=== PATIENT | female | born 1950 | race Caucasian/White ===

== ENCOUNTER 2021-06-20 09:47 | Emergency (ER) | payer OTHER ==
[~2021-06-20] VITALS: Ht 142.2 cm; Wt 54.4 kg
[~2021-06-20 09:47] MED LIST: ADULT LOW DOSE81 MG PO; AMARYL4 MG PO; BLACK COHOSH40 MG PO; EVENING PRIMR1000 MG PO; FISH OIL 1,0001 EAC5 PO; GLUCOPHAGE500 MG PO; JANUVIA100 MG PO; LEVEMIR FL100 UNIT/2 SUBQ; METFORMIN 500500 MG PO; METFORMIN HCL1000 M1 PO; MULTIVITAMINS1 EAC7 PO; PRAVACHOL40 MG PO; PRILOSEC 20 MG20 MG PO; VICTOZA0.6 MG/0.1 SQ; VITAMINC500 PO; ZESTRIL2.5 MG PO; ZYRTEC10 M2 PO
[2021-06-20 11:16] LABS: ABSOLUTE NEUTROPHILS 3.9 thou/uL (1.4-8.2); BASOPHILS 0.6 % (0.0-2.0); EOSINOPHILS 0.5 % (0.0-3.0); HEMATOCRIT 41.4 % (37.0-47.0); HEMOGLOBIN 14.2 gm/dL (12.0-15.0); LYMPHOCYTES 16.8 % (24.0-44.0); MCH 33.3 pg (26.0-34.0); MCHC 34.3 g/dL (28.0-37.0); MCV 97.2 fL (80.0-100.0); MONOCYTES 5.2 % (1.0-8.0); PLATELET COUNT 144 thou/uL (150-400); POLYS 76.9 % (36.0-66.0); RBC 4.27 mil/uL (4.20-5.00); RDW 12.5 % (10.5-14.5); WBC 5.1 thou/uL (4.0-11.0)
[2021-06-20 11:30] LABS: CALCIUM 9.4 mg/dL (8.5-10.1); CREATININE 0.7 mg/dL (0.6-1.0); POTASSIUM 4.2 mmol/L (3.5-5.1)
[2021-06-20 11:41] LABS: ALBUMIN 3.8 g/dL (3.4-5.0); TOTAL BILIRUBIN 0.4 mg/dL (0.2-1.0); TOTAL PROTEIN 7.2 g/dL (6.4-8.2)
[2021-06-20] MEDS ORDERED: CITRACAL + D31 EACH PO (11:42)
[2021-06-20] MEDS ORDERED: CYCLOSPORINE25 MG PO (11:43)
[2021-06-20] MEDS ORDERED: BIOTIN5 M1 PO (11:43)
[2021-06-20] MEDS ORDERED: REFRESH CLASSI1 EACH (11:44)
[2021-06-20] MEDS ORDERED: ZADITOR5 M1 (11:45)
[2021-06-20] MEDS ORDERED: POLYMYXIN B/TMP10 ML (11:46)
[2021-06-20] MEDS ORDERED: MECLIZINE HCL25 MG PO (12:17)
[2021-06-20 12:33] VITALS: BP 149/66
--- NOTE | 2021-06-20 15:44 | EKG ---
[place] [address] [employer] [facility] [address] [place] [address] ELECTROCARDIOGRAM REPORT Name: DIOGO MAYS Wesley Room #: [facility]ann#: [id number] Admission: 06/20/21 Attend Phys: Discharge: 06/20/21 Date of : 52 Report #: [id number] [facility] ED Test Date: 2021-06-20 Test Time: 10:36:43 Pat Name: DIOGO MAYS Department: Room: Gender: F Claims Vice President: : 1950 Requested By: Carlos Rosario Order Number: [id number] MD: Mike Delacruz Measurements Intervals [place] Rate: 83 P: 29 AL: 161 QRS: 5 QRSD: 106 T: 4 QT: 378 QTc: 445 Interpretive Statements Sinus rhythm Low voltage, precordial leads Compared to ECG 10/22/2012 09:29:28 Low QRS voltage now present Myocardial infarct finding no longer present Electronically Signed On 06-20-2021 15:44:38 [employer] by Mike Delacruz [email or web address] <ELECTRONICALLY SIGNED> By: Mike Delacruz MD, [facility] 06/20/21 1544 1036 1036 Mike Delacruz MD, FACC /EPI
--- NOTE | 2021-06-25 07:30 | EKG ---
[address] [place] [address] ELECTROCARDIOGRAM REPORT Name: DIOGO MAYS [facility] [id number] Admission: 06/20/21 Attend Phys: Discharge: 06/20/21 Date of : 52 Report #: [id number] [facility] ED Test Date: 2021-06-20 Test Time: 10:34:27 Pat Name: DIOGO MAYS Department: Room: Gender: F Senior Examiner: : 1950 Requested By: Carlos Rosario Order Number: [id number] MD: Mike Delacruz Measurements Intervals [place] Rate: 83 P: [place]: QRS: 4 QRSD: 90 T: 9 QT: 380 QTc: 447 Interpretive Statements NSR Low voltage, precordial leads Compared to ECG 10/22/2012 09:29:28 Low QRS voltage now present Myocardial infarct finding no longer present Electronically Signed On 06-25-2021 7:29:52 [employer] by Mike Delacruz [email or web address] <ELECTRONICALLY SIGNED> By: Mike Delacruz MD, [facility] 06/25/21 0729 1034 1034 Mike Delacruz MD, FACC /EPI
== END 2021-06-20 12:41 | disposition home or self-care (01) ==
LOC: ER 09:47
PROVIDERS: Emergency Medicine
DX: H81.10 Benign paroxysmal vertigo, unspecified ear (principal); I10 Essential (primary) hypertension; G40.909 Epilepsy, unspecified, not intractable, without status epilepticus; E11.9 Type 2 diabetes mellitus without complications; E78.5 Hyperlipidemia, unspecified; K21.9 Gastro-esophageal reflux disease without esophagitis; Z79.4 Long term (current) use of insulin; Z79.891 Long term (current) use of opiate analgesic; Z79.1 Long term (current) use of non-steroidal anti-inflammatories (NSAID); Z79.899 Other long term (current) drug therapy; Z88.6 Allergy status to analgesic agent; Z88.1 Allergy status to other antibiotic agents; Z88.5 Allergy status to narcotic agent; Z88.7 Allergy status to serum and vaccine; Z88.8 Allergy status to other drugs, medicaments and biological substances